=== PATIENT | female | born 1960 | race Two or more races ===

== ENCOUNTER 2025-01-08 09:19 | Emergency (ER) | payer MEDICARE, MEDICAID, SELFPAY ==
[2025-01-08 09:28] VITALS: BP 157/83; PULSE 73; RESP 19; TEMP 37; O2SAT 95; BMI 40.4
--- NOTE | 2025-01-08 10:08 | PD.EDRME ---
Rapid Medical Screening Exam RME Arrival date/time: 01/08/25 09:19 This is a 64-year-old female she comes to the emergency room with complaints of wanting labs done. Patient states that she is supposed to get a biopsy done tomorrow. Patient has a mass to her left breast. Patient states that she has been seen by her primary doctor for this is already been worked up in the past. Patient has no complaints. Patient reports that she was not told why she needed labs and what labs she needed she was just told to come to the emergency room today to get labs done. Patient is afraid that she has not been to be able to have her procedure if she does not get her labs done today. I have greeted and performed a focused initial assessment of this patient. Initial appropriate labs ordered at this time. A comprehensive ED assessment and evaluation of the patient and analysis of all test and completion of medical decision making process will be conducted by additional ED provider. Chief Complaint: General Adult/Misc Complain Time Seen by Provider: 01/08/25 09:21 Vital signs: Vital Signs Temperature 98.6 F 01/08/25 09:28 Pulse Rate 73 01/08/25 09:28 Respiratory Rate 19 01/08/25 09:28 Blood Pressure 157/83 H 01/08/25 09:28 Pulse Oximetry (%) 95 01/08/25 09:28 Oxygen Delivery Method Room Air 01/08/25 09:28
--- NOTE | 2025-01-08 11:00 | PC.NURSE ---
NO ANSWER IN LOBBY
--- NOTE | 2025-01-08 11:38 | PC.NURSE ---
NO ANSWER IN LOBBY
== END 2025-01-08 11:39 | disposition left against medical advice (07) ==
PROVIDERS: Emergency Provider Emergency Medicine
DX: N63.20 Unspecified lump in the left breast, unspecified quadrant (principal); Z53.29 Procedure and treatment not carried out because of patient's decision for other reasons
CPT/HCPCS: 99281

== ENCOUNTER → 2025-06-19 | Outpatient (CLI) | payer MEDICARE, MEDICAID, SELFPAY ==
[2025-06-19 11:15] LABS: Basophils # (Auto) 0.1 Thou/mm3 (0.0-0.2); Basophils % (Auto) 1 % (0-2.5); Eosinophils # (Auto) 0.3 Thou/mm3 (0.0-0.5); Eosinophils % (Auto) 4 % (0-10); Hematocrit 36.7 % (36.0-46.0); Hemoglobin 11.2 g/dL (12.0-16.0); Immature Granulocytes Auto 0.03 Thou/mm3 (0.00-0.00); Lymphocytes # (Auto) 1.5 Thou/mm3 (1.0-4.8); Lymphocytes % (Auto) 21 % (10-50); Mean Corpuscular HGB Conc 30.5 g/dl (31.0-37.0); Mean Corpuscular Hemoglobin 26.6 pg (25.0-35.0); Mean Corpuscular Volume 87 fL (80-100); Monocytes # (Auto) 0.6 Thou/mm3 (0.0-0.8); Monocytes % (Auto) 8 % (0-12); Neutrophils # (Auto) 4.6 Thou/mm3 (1.8-7.7); Neutrophils % (Auto) 65 % (37-80); Nucleated Red Blood Cell # 0.00 Thou/mm3 (0.00-0.00); Nucleated Red Blood Cell % 0 /100 WBC (0); Platelet Count 446 Thou/mm3 (140-440); RDW Standard Deviation 47.1 fL (36.4-46.3); Red Blood Count 4.21 Miln/mm3 (4.00-5.20); White Blood Count 7.0 Thou/mm3 (3.6-11.0)
[2025-06-19 11:46] LABS: Alanine Aminotransferase 27 U/L (10-49); Albumin, Serum 4.1 gm/dL (3.4-4.8); Albumin/Globulin Ratio 1.4 (1.2-2.2); Alkaline Phosphatase 75 U/L (46-116); Anion Gap 11 (7-16); Aspartate Amino Transferase 36 U/L (0-34); BUN/Creatinine Ratio 10 Ratio (12-20); Bilirubin,Total 0.3 mg/dL (0.3-1.2); Blood Urea Nitrogen 7 mg/dL (9-23); Calcium 9.2 mg/dL (8.3-10.6); Calcium (Corrected) 9.2 mg/dL (8.5-10.1); Carbon Dioxide 26.7 mMol/L (20.0-31.0); Chloride 104 mMol/L (98-107); Creatinine (Component) 0.7 mg/dL (0.6-1.3); Globulin 2.9 gm/dL (2.3-3.5); Glucose 100 mg/dL (74-106); Osmolality,Calculated 281 (275-295); Potassium 4.1 mMol/L (3.4-5.1); Sodium 142 mMol/L (136-145); Total Protein 7.0 gm/dL (5.7-8.2); eGFR > 60 See Note
== END | disposition home or self-care (01) ==
PROVIDERS: Referring Provider Internal Medicine Hematology & Oncology; Visit Provider Internal Medicine Hematology & Oncology
DX: C50.811 Malignant neoplasm of overlapping sites of right female breast (principal)
CPT/HCPCS: 36415; 80053; 85025

== ENCOUNTER → 2025-06-20 | Outpatient (CLI) | payer MEDICARE, MEDICAID, SELFPAY ==
--- NOTE | 2025-06-20 09:30 | ECHO_ITS ---
Transthoracic Echo Report Ht (in): 61 Wt (lb): 289 Exam Location: Echo Lab Status: Preadmit Acute Coordinator: Carito Reese Indications: Procedure Performed: BP: 173 / 112 HR: 75 MEASUREMENTS (Male / Female) Normal Values DOPPLER AV Peak Velocity 133.0 cm/s AV Peak Gradient 7.1 mmHg AV Mean Gradient 4.0 mmHg AV Velocity Time Integral 20.6 cm LVOT Peak Velocity 64.8 cm/s LVOT Peak Gradient 1.7 mmHg LVOT Velocity Time Integral 12.1 cm MV Area PHT 3.7 cm? Mitral E Point Velocity 45.9 cm/s Mitral A Point Velocity 51.1 cm/s Mitral E to A Ratio 0.9 TR Peak Velocity 135.0 cm/s TR Peak Gradient 7.3 mmHg PV Peak Velocity 85.1 cm/s PV Peak Gradient 2.9 mmHg FINDINGS Left Ventricle Normal left ventricular size, wall thickness, systolic function with no obvious regional wall motion abnormalities. The ejection fraction is visually estimated at 50-55%. Right Ventricle The right ventricle is normal in size and systolic function. Left Atrium The left atrium is normal by two-dimensional, color flow and Doppler imaging with no structural abnormalities, no thrombus formation present. Right Atrium The right atrium is normal by two-dimensional imaging, color flow and Doppler imaging with no structural abnormalities, no thrombus formation present. Atrial Septum The interatrial septum appears normal with no evidence of a shunt. Aorta The aorta is normal by two-dimensional, color flow and Doppler interrogation. Mitral Valve The mitral valve is normal by two-dimensional, color flow and Doppler interrogation. There is no significant mitral valve regurgitation, stenosis or prolapse. Aortic Valve The aortic valve is trileaflet and normal by two-dimensional, color flow and Doppler interrogation. There is no significant aortic valve regurgitation. Tricuspid Valve The tricuspid valve is normal by two-dimensional, color flow and Doppler interrogation. There is no significant tricuspid valve regurgitation. Pulmonic Valve The pulmonic valve is not well visualized. There is no significant pulmonic valve regurgitation. Pericardium The pericardium is normal by two-dimensional imaging. There is no significant pericardial effusion. Other Findings Limited exam. Patient has a open abscess on chest since January. Wouldn't allow me to scan because very painful and abcess oozing. Abscess under breast as well. Only can view subcostal CONCLUSIONS Indication: Malignant neoplasm of overlapping sites of right female breast Limited exam. Patient has a open abscess on chest since January. Wouldn't allow me to scan because very painful and abcess oozing. Abscess under breast as well. Only can view subcostal Normal left ventricular size and function visualization. Approximate ejection fraction is 50-55%. Normal right ventricular size and function. Trace pericardial effusion vs pericardial fat pad. Cannot comment on valvular pathology Jose James (Electronically Signed) Final Date: 21 June 2025 18:19
--- NOTE | 2025-06-20 13:30 | XR_ITS ---
EXAMINATION: MRI brain with intravenous contrast TECHNIQUE: Multiple axial sagittal coronal brain MRI images post intravenous administration 20 cc gadolinium Date and time: June 20, 2025 1426 hours INDICATIONS: Diagnosis right malignant neoplasm of overlapping sites of right female breast, staging FINDINGS: Ventricles are normal in size and configuration. No mass effect upon the ventricular system. No effacement of the cortical sulci Normal pituitary No abnormal enhancing cerebellar or cerebral lesions IMPRESSION: No abnormal enhancing cerebellar or cerebral metastatic lesions
== END | disposition home or self-care (01) ==
PROVIDERS: Referring Provider Internal Medicine Hematology & Oncology; Visit Provider Internal Medicine Hematology & Oncology
DX: C50.811 Malignant neoplasm of overlapping sites of right female breast (principal)
CPT/HCPCS: 70552; 93306; A9577

== ENCOUNTER 2025-06-30 08:27 | Outpatient (RCR) | payer MEDICARE, MEDICAID, SELFPAY | END 2025-07-07 23:59 | disposition home or self-care (01) | LOC: SCTC 08:27 | PROVIDERS: PCP Family Medicine; Referring Provider Internal Medicine Hematology & Oncology; Visit Provider Internal Medicine Hematology & Oncology | DX: C50.312 Malignant neoplasm of lower-inner quadrant of left female breast (principal); Z17.0 Estrogen receptor positive status [ER+]; Z17.21 Progesterone receptor positive status | CPT/HCPCS: Q3014 ==

== ENCOUNTER 2025-07-12 14:05 | Outpatient (RCR) | payer MEDICARE, MEDICAID, SELFPAY ==
--- NOTE | 2025-07-12 15:02 | CTCFLWUP_ITS ---
Patient: MELISSA SOLITARIO : 1960 Page 3 of 6 FOLLOW UP NOTE DATE OF SERVICE: 07/12/2025 NAME: MELISSA SOLITARIO ACCOUNT: [id number] : 1960 AGE: 64 INTERVAL HISTORY: Breast cancer follow-up--patient was seen as a follow-up. Unfortunately patient's port catheter was never placed. As per patient referred to surgeon. Was on vacation and her appointment has been pushed for 2 times. Patient has been taking antiendocrine therapy and her cancer has shrunk. Patient do not have any discomfort anymore. Patient is yet to start chemotherapy secondary to delay in port catheter placement. Urgent message was sent to interventional radiology for port placement on priority basis. My authorization team will work to get urgent authorization for port placement with IR. And redirect referral to interventional radiology instead of surgery. Advised chemotherapy nurses to give patient appointment in 10 days in anticipation of starting chemotherapy. This will help us prevent further delay. ONCOLOGY HISTORY: DIAGNOSIS: Malignant neoplasm of overlapping sites of right female breast [ICD10] C50.811 DATE OF DIAGNOSIS: 01/10/2025 STAGE/TNM: IIIB T4b N2a M0 TREATMENT HISTORY: Care?Plan Start?Date Cycle Day Intent AC?4?cy?DD?Taxol?wkly?12?wks 06/08/2025 1 7 Induction-Primary Zoledronic?Acid?4?mg?adjuvant 06/08/2025 1 180 Maintenance HISTORY OF PRESENT ILLNESS: 64-year-old female presenting with a complaint of left breast fungating mass turned into ulcer. Patient says it started recently she has not noticed it for more than few months. Skin started oozing only a month ago. She has not received any treatment till date. 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 amlodipine - 10 mg 1 tab Daily 2. Arimidex - 1 mg 1 tab Daily 3. Compazine - 5 mg 1 tab as needed 4. HYDROcodone-acetaminophen - 10-325 mg 1 tab Every 1 Hours 5. lisinopril-hydrochlorothiazide - 20-12.5 mg 1 tab Daily 6. ondansetron - 8 mg 1 tab as needed Medications Last Reconciled by Rachelle Diaz RN on 06/08/2025 ALLERGIES: No Known Drug Allergies REVIEW OF SYSTEMS: A complete 14-point review of systems was performed and is negative except as noted in interval history. PHYSICAL EXAMINATION: VITAL SIGNS: PAIN: 0 - No pain ECOG Performance Status: 1 - Symptomatic; ambulatory; restricted in strenuous activity GENERAL APPEARANCE: Appears well, in no apparent distress, appropriately interactive. HEENT: Normocephalic, no temporal wasting, normal conjunctiva, no scleral icterus, normal hearing, lips without lesions, neck normal range of motion. CARDIOVASCULAR: Not assessed. PULMONARY: Normal respiratory effort, no respiratory distress or use of accessory muscles, speaking in full sentences, no tachypnea. EXTREMITIES: No pedal edema or cyanosis. SKIN: Normal skin appearance. NEUROLOGIC: Alert and oriented x4. PSHYCHIATRIC: Appropriate affect, mood normal, behavior normal, intact thought and speech. Large fungating mass noted on the left breast at it is bandaged but seems less oozing. LABORATORY DATA: I have personally reviewed and interpreted each of the patient?s relevant lab tests, abnormal findings are below: Date 06/19/25 ??WHITE?BLOOD?COUNT?(Thou/mm3) 7.0 ??RED?BLOOD?COUNT?(Miln/mm3) 4.21 ??HEMOGLOBIN?(gm/dl) 11.2?L ??HEMATOCRIT?(%) 36.7 ??PLATELET?COUNT?(Thou/mm3) 446?H ??NEUTROPHILS?%,?AUTO?(%) 65 ??LYMPH?%,?AUTO?(%) 21 ??NEUTROPHILS,?AUTO?(Thou/mm3) 4.6 ??GLUCOSE,RANDOM?(mg/dL) 100 ??BLOOD?UREA?NITROGEN?(mg/dL) 7?L ??CREATININE?(mg/dL) 0.70 ??SODIUM?(mmol/L) 142 ??POTASSIUM?(mmol/L) 4.1 ??CHLORIDE?(mmol/L) 104 ??CrCl?(CandG)?(ml/min) 103.23 ??AST/SGOT?(Unit/L) 36?H ??ALT/SGPT?(Unit/L) 27 ??ALKALINE?PHOSPHATASE?(Unit/L) 75 ??BILIRUBIN,?TOTAL?(mg/dL) 0.3 ??PROTEIN?TOTAL?(gm/dl) 7.0 ??ALBUMIN,?SERUM?(gm/dl) 4.1 ??GLOBULIN?(gm/dl) 2.9 ??ALBUMIN/GLOBULIN?RATIO 1.4 ??CALCIUM,?SERUM?(mg/dL) 9.2 ??CALCIUM?SERUM?(CORRECTED)?(mg/dL) 9.2 ASSESSMENT/PLAN: Left inflammatory breast cancer with involvement of skin with a open ulcer at least stage III if no metastatic sites are seen on the imaging ordered ER/NH positive Patient is taking Arimidex and tolerating well Patient will be candidate for adjuvant antiendocrine therapy with Verzenio once chemotherapy is complete Ordered CT scan chest abdomen pelvis and brain MRI to evaluate for metastatic disease. Is still pending Send the referral to interventional radiology to place port catheter TRAVIS so we can start chemotherapy sooner take calcium and vitamin D3 Will start on Zometa once patient is cleared by dentist as adjuvant therapy for breast cancer Return in 4 weeks to evaluate how patient is going with chemotherapy ORDERS: Order # Description [id number] Comprehensive Metabolic Panel - 12 [id number] CBC with Auto Diff [id number] MD Follow Up 4 Week [id number] Infusion 1 Hour [id number] Infusion 1 Hour [id number] Infusion 1 Hour [id number] Infusion 1 Hour [id number] Infusion 1 Hour RETURN TO CLINIC: I reviewed the diagnosis, prognosis, and recommended treatment/procedure options with the patient (and/or their legal desk representative), including the potential benefits, risks, side effects and alternative therapies. We also discussed the option of no treatment and the possibility of clinical trial participation, if applicable. All questions were addressed, and they demonstrated understanding. They provided informed consent to proceed with the proposed plan of care. BILLING AND COMPLIANCE: I reviewed external records from providers outside my specialty as summarized above. I spent a total of 50 minutes on this patient?s care on the day of their visit excluding time spent related to any billed procedures. This time includes time spent with the patient as well as time spent documenting in the medical record, reviewing patients records and tests, obtaining history, placing orders, communicating with other healthcare professionals, counseling the patient, family or caregiver, and/or care coordination for the diagnoses above. Electronically Signed by: Iraj Hurtado MD T: 2:59 PM CC: PCP: Referring: Elijah Suresh This document was completed utilizing speech recognition software. Grammatical errors, random word insertions, pronoun errors, and incomplete sentences are an occasional consequence of this system due to software limitations, ambient noise, and hardware issues. Any formal questions or concerns about the content, text or information contained within the body of this dictation should be directly addressed to the provider for clarification.
== END 2025-08-06 23:59 | disposition home or self-care (01) ==
LOC: SCTC 14:05
PROVIDERS: PCP Family Medicine; Referring Provider Family Medicine; Visit Provider Internal Medicine Hematology & Oncology
DX: C50.312 Malignant neoplasm of lower-inner quadrant of left female breast (principal); Z17.0 Estrogen receptor positive status [ER+]; Z17.21 Progesterone receptor positive status; Z17.32 Human epidermal growth factor receptor 2 negative status; Z79.811 Long term (current) use of aromatase inhibitors
CPT/HCPCS: 99212; G0463

== ENCOUNTER 2025-07-24 08:17 | Outpatient (CLI) | payer MEDICARE, MEDICAID, SELFPAY ==
[2025-07-20 16:24] VITALS: BMI 37.9
[2025-07-21 10:59] LABS: Basophils # (Auto) 0.1 Thou/mm3 (0.0-0.2); Basophils % (Auto) 1 % (0-2.5); Eosinophils # (Auto) 1.0 Thou/mm3 (0.0-0.5); Eosinophils % (Auto) 16 % (0-10); Hematocrit 45.4 % (36.0-46.0); Hemoglobin 14.3 g/dL (12.0-16.0); Immature Granulocytes Auto 0.02 Thou/mm3 (0.00-0.00); Lymphocytes # (Auto) 1.7 Thou/mm3 (1.0-4.8); Lymphocytes % (Auto) 28 % (10-50); Mean Corpuscular HGB Conc 31.5 g/dl (31.0-37.0); Mean Corpuscular Hemoglobin 26.9 pg (25.0-35.0); Mean Corpuscular Volume 86 fL (80-100); Monocytes # (Auto) 0.5 Thou/mm3 (0.0-0.8); Monocytes % (Auto) 9 % (0-12); Neutrophils # (Auto) 2.7 Thou/mm3 (1.8-7.7); Neutrophils % (Auto) 46 % (37-80); Nucleated Red Blood Cell # 0.00 Thou/mm3 (0.00-0.00); Nucleated Red Blood Cell % 0 /100 WBC (0); Platelet Count 331 Thou/mm3 (140-440); RDW Standard Deviation 49.1 fL (36.4-46.3); Red Blood Count 5.31 Miln/mm3 (4.00-5.20); White Blood Count 6.0 Thou/mm3 (3.6-11.0)
[2025-07-21 11:08] LABS: INR 1.0 (0.9-1.3); Partial Thromboplastin Time 27.1 Seconds (22.0-36.0); Prothrombin Time 10.4 Seconds (9.0-12.2)
[2025-07-21 11:11] LABS: Blood Urea Nitrogen 6 mg/dL (9-23); Creatinine (Component) 0.8 mg/dL (0.6-1.3); Estimated Creatinine Clearance 93.1 mL/min (>60); eGFR > 60 See Note
[2025-07-24] VITALS (13 sets, daily range): BP systolic 140–179; BP diastolic 67–110; PULSE 68–84; RESP 13–22; TEMP 36.4; O2SAT 94–100
[2025-07-24] MEDS: SODIUM CHLORIDE 0.9% 500 ML 500 ML 250 ML IV (09:40)
[2025-07-24] MEDS: HEPARIN SOD LOCK SYR 100 UNIT/ML 500 UNIT STFIELD (09:45)
--- NOTE | 2025-07-24 10:00 | XR_ITS ---
Examination: IR venous implantation Port-A-Cath. Ultrasound-guided needle placement right internal jugular vein. Fluoroscopy AP Chest, portable single view Exam date and time: July 24 2025, 0855 hours INDICATIONS: Diagnosis right breast malignant neoplasm requiring long-term chemotherapy. Informed consent provided Technique: A timeout was completed, verifying correct patient, procedure, site, positioning, and special equipment if applicable The patient was placed in a dependent position appropriate for central line placement based on the vein to be cannulated. The patient's right neck was prepped and draped in sterile fashion. Maximum Sterile Barrier Technique used including cap, mask, sterile gown, sterile gloves, and sterile full body drape. If ultrasound technique used: sterile gel and sterile probe covers. Hand Hygiene performed using proper scrub, soap and water, or alcohol-based hand rub. Site right portable apparatus utilized to confirm patency of the right internal jugular vein Utilizing ultrasonographic guidance successful micropuncture with 21-gauge needle into the right internal jugular vein Ultrasound images were recorded and stored. Successful micropuncture with a 21-gauge needle was performed. 0.18 wire guide was introduced into the IVC under fluoroscopic guidance. The wires is then exchanged for a 0.25 J-wire guide placed in the vena cava. Blunt dissection utilized to perform subcutaneous pocket in the upper right chest 8 Latvian 23 cm Port-A-Cath then connected to Port-A-Cath reservoir placed in the subcutaneous pocket and introduced through the venous sheath into the superior vena cava in proper position under fluoroscopic guidance Perfusion to the extremity distal to the point of catheter insertion was checked and found to be adequate The attending radiologist was present for the entire procedure Estimated blood loss 4 cc. Findings: Under fluoroscopy, the tip of the catheter is in good position in the vena cava. Portable chest x-ray, post Port-A-Cath placement, as ordered. Impression: Successful ultrasound-guided needle placement right internal jugular vein. Successful IR venous implantation Port-A-Cath. Fluoroscopy 0.2-minute radiation dose 3.21 mGy 1 spot fluoroscopic chest. AP portable chest completion procedure demonstrates satisfactory position Port-A-Cath tip SVC. May use Port-A-Cath
[2025-07-24] MEDS: fentaNYL CIT INJ 50 mCg/ML AMP 2ML 75 MCG IV (10:08)
[2025-07-24] MEDS: LIDOCAINE 1% W/EPI 1:100K 20 ML VIAL 6 ML INFL (10:11)
[2025-07-24] MEDS: LIDOCAINE INJ PF 1% 30 ML VIAL 8 ML INFL (10:11)
== END 2025-07-24 11:35 | disposition home or self-care (01) ==
PROVIDERS: PCP Nurse Practitioner Family; Referring Provider Internal Medicine Hematology & Oncology; Visit Provider Radiology Diagnostic Radiology
DX: C50.811 Malignant neoplasm of overlapping sites of right female breast (principal)
CPT/HCPCS: 36571; 36415; 76937; 77001; 82565; 84520; 85025; 85610; 85730; A4649; C1769; C1788; C1894; J0689; J0690; J1642; J3010; J3490; J7050; J7999

== ENCOUNTER → 2025-08-02 | Outpatient (CLI) | payer MEDICARE, MEDICAID, SELFPAY ==
--- NOTE | 2025-08-02 11:00 | XR_ITS ---
EXAMINATION:: CT chest with intravenous contrast CT abdomen with intravenous contrast CT pelvis with intravenous contrast CT chest without intravenous contrast CT abdomen without intravenous contrast CT pelvis without intravenous contrast 2-D coronal and sagittal reconstructions Time of exam: August 02, 2025, 11:31 a.m. INDICATIONS: Diagnosis malignant neoplasm of right female breast recent diagnosis, staging CTDI: vol (mGy) : 45 DLP: (mGycm): 2262 Technique: Multiple axial images of the chest, abdomen and pelvis with intravenous contrast, 3.0 mm slice thickness. Images obtained post intravenous injection Isovue 370 60 cc. 2-D sagittal and coronal reconstructions. Low dose protocols were performed. One or more of the following dose reduction techniques were used; automated exposure control, adjustment of the mA and/or KV according to patient size, use of iterative reconstruction technique. Findings: Medial anterior left breast presternal mass extending from the chest wall to the skin surface, for instance axial image 74 mediolateral dimension at least 11 cm, AP dimension up to 4.2 cm cephalocaudad dimension up to 6.6 cm Subtle diffuse increased radiodensity throughout the left breast for instance axial image 77 Multiple abnormal axillary lymph nodes, indistinct margins, the largest 16 mm No thoracic aortic aneurysmal dilatation No pulmonary artery emboli No paratracheal tracheobronchial or bronchopulmonary adenopathy The medial left breast and presternal mass does partly surround the left third fourth and fifth ribs There are multiple sclerotic lesions in bilateral ribs There is extensive abnormal sclerosis involving the body of the sternum Sclerotic foci in all visualized cervical thoracic and lumbar vertebral bodies as well as sacral segments Atelectasis in the left upper lobe No pneumonia or pulmonary edema Hepatosplenomegaly, no focal liver or splenic lesions Left adrenal metastatic mass, 38 mm Subcentimeter para-aortic lymph nodes No bowel obstruction Normal appendix Colonic diverticulosis No bladder mass Anteverted uterus Osteoblastic lesions also right scapula, iliac bones including both right and left acetabulum and bilateral hips IMPRESSION: Medial anterior left breast presternal mass extending from the chest wall to the skin surface, 11 x 4.2 x 6.6 cm with additional subtle diffuse increased radiodensity throughout the entire left breast including skin thickening Multiple abnormal axillary lymph nodes 38 mm left adrenal metastatic mass Widespread osteoblastic metastatic disease Subcentimeter para-aortic lymph nodes Recommend bilateral breast MRI follow-up pre and postcontrast
== END | disposition home or self-care (01) ==
PROVIDERS: Referring Provider Internal Medicine Hematology & Oncology; Visit Provider Internal Medicine Hematology & Oncology
DX: N63.20 Unspecified lump in the left breast, unspecified quadrant (principal); R22.2 Localized swelling, mass and lump, trunk; R23.4 Changes in skin texture; C79.9 Secondary malignant neoplasm of unspecified site; C50.811 Malignant neoplasm of overlapping sites of right female breast
CPT/HCPCS: 71270; 74178; A4649; Q9967

== ENCOUNTER 2025-08-25 09:55 | Outpatient (RCR) | payer MEDICARE, MEDICAID, SELFPAY ==
[2025-08-09 17:05] LABS: Basophils # (Auto) 0.1 Thou/mm3 (0.0-0.2); Basophils % (Auto) 1 % (0-2.5); Eosinophils # (Auto) 0.7 Thou/mm3 (0.0-0.5); Eosinophils % (Auto) 10 % (0-10); Hematocrit 38.5 % (36.0-46.0); Hemoglobin 11.9 g/dL (12.0-16.0); Immature Granulocytes Auto 0.02 Thou/mm3 (0.00-0.00); Lymphocytes # (Auto) 1.8 Thou/mm3 (1.0-4.8); Lymphocytes % (Auto) 25 % (10-50); Mean Corpuscular HGB Conc 30.9 g/dl (31.0-37.0); Mean Corpuscular Hemoglobin 26.4 pg (25.0-35.0); Mean Corpuscular Volume 86 fL (80-100); Monocytes # (Auto) 0.6 Thou/mm3 (0.0-0.8); Monocytes % (Auto) 9 % (0-12); Neutrophils # (Auto) 3.9 Thou/mm3 (1.8-7.7); Neutrophils % (Auto) 56 % (37-80); Nucleated Red Blood Cell # 0.00 Thou/mm3 (0.00-0.00); Nucleated Red Blood Cell % 0 /100 WBC (0); Platelet Count 297 Thou/mm3 (140-440); RDW Standard Deviation 50.4 fL (36.4-46.3); Red Blood Count 4.50 Miln/mm3 (4.00-5.20); White Blood Count 7.1 Thou/mm3 (3.6-11.0)
[2025-08-09 17:29] LABS: Alanine Aminotransferase 23 U/L (10-49); Albumin, Serum 4.4 gm/dL (3.4-4.8); Albumin/Globulin Ratio 1.5 (1.2-2.2); Alkaline Phosphatase 136 U/L (46-116); Anion Gap 9 (7-16); Aspartate Amino Transferase 26 U/L (0-34); BUN/Creatinine Ratio 11 Ratio (12-20); Bilirubin,Total 0.3 mg/dL (0.3-1.2); Blood Urea Nitrogen 8 mg/dL (9-23); Calcium 9.1 mg/dL (8.3-10.6); Calcium (Corrected) 9.1 mg/dL (8.5-10.1); Carbon Dioxide 28.2 mMol/L (20.0-31.0); Chloride 105 mMol/L (98-107); Creatinine (Component) 0.7 mg/dL (0.6-1.3); Globulin 3.0 gm/dL (2.3-3.5); Glucose 71 mg/dL (74-106); Osmolality,Calculated 279 (275-295); Potassium 3.8 mMol/L (3.4-5.1); Sodium 142 mMol/L (136-145); Total Protein 7.4 gm/dL (5.7-8.2); eGFR > 60 See Note
[2025-08-23 10:29] LABS: Basophils # (Auto) 0.1 Thou/mm3 (0.0-0.2); Basophils % (Auto) 1 % (0-2.5); Eosinophils # (Auto) 0.2 Thou/mm3 (0.0-0.5); Eosinophils % (Auto) 3 % (0-10); Hematocrit 38.8 % (36.0-46.0); Hemoglobin 12.5 g/dL (12.0-16.0); Immature Granulocytes Auto 0.41 Thou/mm3 (0.00-0.00); Lymphocytes # (Auto) 1.4 Thou/mm3 (1.0-4.8); Lymphocytes % (Auto) 23 % (10-50); Mean Corpuscular HGB Conc 32.2 g/dl (31.0-37.0); Mean Corpuscular Hemoglobin 27.1 pg (25.0-35.0); Mean Corpuscular Volume 84 fL (80-100); Monocytes # (Auto) 0.6 Thou/mm3 (0.0-0.8); Monocytes % (Auto) 11 % (0-12); Neutrophils # (Auto) 3.3 Thou/mm3 (1.8-7.7); Neutrophils % (Auto) 55 % (37-80); Nucleated Red Blood Cell # 0.00 Thou/mm3 (0.00-0.00); Nucleated Red Blood Cell % 0 /100 WBC (0); Platelet Count 213 Thou/mm3 (140-440); RDW Standard Deviation 48.4 fL (36.4-46.3); Red Blood Count 4.61 Miln/mm3 (4.00-5.20); White Blood Count 5.9 Thou/mm3 (3.6-11.0)
[2025-08-23 10:52] LABS: Alanine Aminotransferase 20 U/L (10-49); Albumin, Serum 4.4 gm/dL (3.4-4.8); Albumin/Globulin Ratio 1.5 (1.2-2.2); Alkaline Phosphatase 142 U/L (46-116); Anion Gap 11 (7-16); Aspartate Amino Transferase 22 U/L (0-34); BUN/Creatinine Ratio 14 Ratio (12-20); Bilirubin,Total 0.3 mg/dL (0.3-1.2); Blood Urea Nitrogen 10 mg/dL (9-23); Calcium 9.2 mg/dL (8.3-10.6); Calcium (Corrected) 9.2 mg/dL (8.5-10.1); Carbon Dioxide 25.8 mMol/L (20.0-31.0); Chloride 105 mMol/L (98-107); Creatinine (Component) 0.7 mg/dL (0.6-1.3); Globulin 2.9 gm/dL (2.3-3.5); Glucose 112 mg/dL (74-106); Osmolality,Calculated 283 (275-295); Potassium 4.1 mMol/L (3.4-5.1); Sodium 142 mMol/L (136-145); Total Protein 7.3 gm/dL (5.7-8.2); eGFR > 60 See Note
--- NOTE | 2025-09-04 04:49 | CTCFLWUP_ITS ---
Patient: MELISSA SOLITARIO : 1960 Page 5 of 5 FOLLOW UP NOTE DATE OF SERVICE: 08/14/2025 NAME: MELISSA SOLITARIO ACCOUNT: [id number] : 1960 AGE: 65 INTERVAL HISTORY: Breast cancer follow-up--patient had a delay start of chemotherapy but is tolerating well. Patient had a CT scan which is showing metastatic disease. Patient has completed 2 cycles of Adriamycin and cyclophosphamide. At this time I will continue with the 4 cycles of AC and will continue on maintenance antiendocrine therapy. Will get brain MRI to evaluate any metastatic disease to the brain ONCOLOGY HISTORY: DIAGNOSIS: Malignant neoplasm of overlapping sites of right female breast [ICD10] C50.811 DATE OF DIAGNOSIS: 01/10/2025 STAGE/TNM: Stage IV T4b N2a M1 TREATMENT HISTORY: Care?Plan Start?Date Cycle Day Intent AC?4?cy?DD?Taxol?wkly?12?wks 06/15/2025 2 7 Induction-Primary Zoledronic?Acid?4?mg?adjuvant 06/08/2025 1 180 Maintenance HISTORY OF PRESENT ILLNESS: 65-year-old female presenting with a complaint of left breast fungating mass turned into ulcer. Patient says it started recently she has not noticed it for more than few months. Skin started oozing only a month ago. She has not received any treatment till date. OTHER MEDICAL HISTORY/CONDITIONS: Infiltrating lobular carcinoma left breast- dx 01/09/25 HTN Obesity Appendectomy - 2017 Benoit tubal ligation - 1998 FAMILY HISTORY: Cancer History:?Mat aunt - unkown ca; Pat uncle - prostate -unknown age SOCIAL HISTORY: Occupational?History:?Retired Education?Level:?Completed High School Tobacco?Use:?Denies ETOH?Use:?Denies Drug?Note:?Denies Social?History?Note:?Lives?with?sister [employer]OUND WORKER HISTORY: Menarche?-?Age:?12 Menopause:?age?57 :?3 Live?Births:?3 Age?1st?:?31 MEDICATIONS: 1. amlodipine - 10 mg 1 tab Daily 2. Arimidex - 1 mg 1 tab Daily 3. Compazine - 5 mg 1 tab as needed 4. HYDROcodone-acetaminophen - 10-325 mg 1 tab Every 1 Hours 5. Kisqali - 400 mg/day (200 mg x 2) 2 tab Daily 6. lisinopril-hydrochlorothiazide - 20-12.5 mg 1 tab Daily 7. ondansetron - 8 mg 1 tab as needed 8. ribociclib - 400 mg/day (200 mg x 2) 2 tab Daily Medications Last Reconciled by Virginia Zheng MD on 08/14/2025 ALLERGIES: No Known Drug Allergies REVIEW OF SYSTEMS: A complete 14-point review of systems was performed and is negative except as noted in interval history. PHYSICAL EXAMINATION: VITAL SIGNS: Temperature?96, B/P?137/83, Oxygen?Saturation?95% Weight?251?lbs (Change?since?08/11/25:?0?lbs) PAIN: 0 - No pain ECOG Performance Status: 0 - Asymptomatic and fully active GENERAL APPEARANCE: Appears well, in no apparent distress, appropriately interactive. PULMONARY: Normal respiratory effort, no respiratory distress or use of accessory muscles, speaking in full sentences, no tachypnea. EXTREMITIES: No pedal edema or cyanosis. SKIN: Normal skin appearance. NEUROLOGIC: Alert and oriented x4. PSHYCHIATRIC: Appropriate affect, mood normal, behavior normal, intact thought and speech. LABORATORY DATA: I have personally reviewed and interpreted each of the patient?s relevant lab tests, abnormal findings are below: Date 08/09/25 08/23/25 ??WHITE?BLOOD?COUNT?(Thou/mm3) 7.1 5.9 ??RED?BLOOD?COUNT?(Miln/mm3) 4.50 4.61 ??HEMOGLOBIN?(gm/dl) 11.9?L 12.5 ??HEMATOCRIT?(%) 38.5 38.8 ??PLATELET?COUNT?(Thou/mm3) 297 213 ??NEUTROPHILS?%,?AUTO?(%) 56 55 ??LYMPH?%,?AUTO?(%) 25 23 ??NEUTROPHILS,?AUTO?(Thou/mm3) 3.9 3.3 ??GLUCOSE,RANDOM?(mg/dL) 71?L 112?H ??BLOOD?UREA?NITROGEN?(mg/dL) 8?L 10 ??CREATININE?(mg/dL) 0.70 0.70 ??SODIUM?(mmol/L) 142 142 ??POTASSIUM?(mmol/L) 3.8 4.1 ??CHLORIDE?(mmol/L) 105 105 ??CrCl?(CandG)?(ml/min) 102.85 99.51 ??AST/SGOT?(Unit/L) 26 22 ??ALT/SGPT?(Unit/L) 23 20 ??ALKALINE?PHOSPHATASE?(Unit/L) 136?H 142?H ??BILIRUBIN,?TOTAL?(mg/dL) 0.3 0.3 ??PROTEIN?TOTAL?(gm/dl) 7.4 7.3 ??ALBUMIN,?SERUM?(gm/dl) 4.4 4.4 ??GLOBULIN?(gm/dl) 3.0 2.9 ??ALBUMIN/GLOBULIN?RATIO 1.5 1.5 ??CALCIUM,?SERUM?(mg/dL) 9.1 9.2 ??CALCIUM?SERUM?(CORRECTED)?(mg/dL) 9.1 9.2 ASSESSMENT/PLAN: Stage IV breast cancer left inflammatory breast cancer with involvement of skin with a open ulcer and CT scan confirmed stage IV disease ER/IN positive Patient has been receiving chemotherapy Completed 4 cycles with AC Will start with anastrozole and ribociclib once patient has completed AC Will start on Zometa once patient is cleared by dentist as adjuvant therapy for breast cancer Return in 4 weeks to evaluate how patient is going with chemotherapy ORDERS: Order # Description [id number] Infusion 1 Hour [id number] Infusion 1 Hour [id number] Infusion 1 Hour [id number] Infusion 1 Hour [id number] Infusion 1 Hour RETURN TO CLINIC: I reviewed the diagnosis, prognosis, and recommended treatment/procedure options with the patient (and/or their legal patient access representative), including the potential benefits, risks, side effects and alternative therapies. We also discussed the option of no treatment and the possibility of clinical trial participation, if applicable. All questions were addressed, and they demonstrated understanding. They provided informed consent to proceed with the proposed plan of care. BILLING AND COMPLIANCE: I reviewed external records from providers outside my specialty as summarized above. I spent a total of 50 minutes on this patient?s care on the day of their visit excluding time spent related to any billed procedures. This time includes time spent with the patient as well as time spent documenting in the medical record, reviewing patients records and tests, obtaining history, placing orders, communicating with other healthcare professionals, counseling the patient, family or caregiver, and/or care coordination for the diagnoses above. Electronically Signed by: {Object.Sanct_ID*PnP.NameFL@M}, {Object.Sanct_ID*PnP.Suffix@U} D: {Object.Sanct_Date} T: {Object.Sanct_Time} CC: PCP: Referring: Iraj Hurtado This document was completed utilizing speech recognition software. Grammatical errors, random word insertions, pronoun errors, and incomplete sentences are an occasional consequence of this system due to software limitations, ambient noise, and hardware issues. Any formal questions or concerns about the content, text or information contained within the body of this dictation should be directly addressed to the provider for clarification.
== END 2025-09-06 23:59 | disposition home or self-care (01) ==
LOC: SCTC 09:55
PROVIDERS: PCP Family Medicine; Referring Provider Internal Medicine Hematology & Oncology; Visit Provider Internal Medicine Hematology & Oncology
DX: Z51.11 Encounter for antineoplastic chemotherapy (principal); C50.811 Malignant neoplasm of overlapping sites of right female breast; Z17.0 Estrogen receptor positive status [ER+]; Z17.21 Progesterone receptor positive status; Z17.32 Human epidermal growth factor receptor 2 negative status; L98.44 Non-pressure chronic ulcer of chest; Z79.811 Long term (current) use of aromatase inhibitors
CPT/HCPCS: 36591; 80053; 85025; 96367; 96372; 96409; 96411; 96413; 96417; 99212; 99424; 99425; A4216; J1100; J1434; J1642; J2405; J2506; J3490; J7040; J7050; J9000; J9075; Q5111; G0463